=== PATIENT | male | born 1995 ===

== ENCOUNTER 2022-06-20 23:57 | Emergency (ER) | payer SELFPAY ==
[2022-06-21] MEDS ORDERED: ONDANSETRON 4 MG/2 ML INJ IV ONE ×2 (01:29→13:24)
[2022-06-21] MEDS ORDERED: SODIUM CHLORIDE 0.9% 1000 ML 1,000 ML IV ONE ×3 (01:29→03:13)
[2022-06-21 01:55] LABS: Albumin 5.2 g/dL (3.9-5); Calcium 9.3 mg/dL (8.4-10.2)
--- NOTE | 2022-06-21 02:00 | XRay Report ---
CHEST 1 VIEW 06/21/2022 1:38 AM INDICATION / CLINICAL INFORMATION: Dyspnea. COMPARISON: None available. FINDINGS: Heart size appears normal. Small amount of pneumomediastinum and gas in the right neck soft tissues. Some gas surrounding the left cardiac border. No large pneumothorax is definitely seen. IMPRESSION: Pneumomediastinum with gas in the right neck soft tissues as well Called to Dr. Hameed Signer Name: Robson Jaimes MD Signed: 06/21/2022 1:55 AM Workstation Name: [id number]
[2022-06-21 02:50] LABS: Mucus,Urine FEW /HPF
[2022-06-21 02:52] LABS: Hematocrit 47.7 % (35.5-45.6); Hemoglobin 15.2 gm/dl (11.8-15.2); Mean Corpuscular HGB Conc 32 % (32-34); Mean Corpuscular Volume 86 fl (84-94); Platelet Count 341 K/mm3 (140-440); Red Blood Count 5.57 M/mm3 (3.65-5.03); Red Cell Distribution Width 13.2 % (13.2-15.2)
[2022-06-21] MEDS ORDERED: INSULIN REGULAR, HUMAN 100 UNITS in SODIUM CHLORIDE 0.9% 99 ML IV SCH (03:00)
[2022-06-21 03:06] LABS: Amphetamine Screen,Urine PRESUMPTIVE NEGATIVE; Benzodiazepines Screen,Urine PRESUMPTIVE NEGATIVE; Cannabinoid Screen,Urine PRESUMPTIVE POSITIVE; Cocaine Screen,Urine PRESUMPTIVE NEGATIVE; Methadone Screen,Urine PRESUMPTIVE NEGATIVE; Opiate Screen,Urine PRESUMPTIVE NEGATIVE
[2022-06-21] MEDS ORDERED: INSULIN REGULAR, HUMAN 100 UNITS/1 ML IV ONE (03:14)
[2022-06-21 03:21] LABS: Bilirubin,Urine Negative (Negative); Color,Urine Straw (Yellow)
[2022-06-21 03:22] LABS: Blood,Urine Negative (Negative)
--- NOTE | 2022-06-21 03:22 | Cat Scan Report ---
CT CHEST without, ABDOMEN, AND PELVIS WITH IV CONTRAST INDICATION / CLINICAL INFORMATION: pain. TECHNIQUE: Axial CT images were obtained through the chest, abdomen, and pelvis after IV contrast. All CT scans at this location are performed using CT dose reduction for ALARA by means of automated exposure contr ol. COMPARISON: None available. FINDINGS: CHEST: There is diffuse gas within soft tissues of the neck. Diffuse pneumomediastinum is identified. Heart size appears normal. No significant coronary artery calcifications. No pneumothorax is seen. N o pleural effusion is noted. ABDOMEN/PELVIS: There is a lesion within the left hepatic lobe with niranjan pheral areas of discontinuous enhancement measuring 4.5 cm. Findings suggest possible hemangioma. The spleen, adrenal glands, pancreas appear normal. Evaluation of the mesentery of the abdomen is limite d due to the amount of gas and fluid throughout the small and large bowel loops. Significant motion a rtifact also limits examination throughout the abdomen. The urinary bladder is markedly distended vis ualized aorta appears normal. No significant coronary artery calcifications. Small hydroceles are not ed. Appendix is not seen. No focal inflammatory changes definitely seen however limited by paucity of intra-abdominal fat SKELETAL SYSTEM: No significant abnormality. IMPRESSION: 1. Diffuse pneumomediastinum with air tracking into the right neck soft tissues axilla as well. Some mild gas extends into the upper abdomen for the mediastinum. No displaced fractures seen. No pneumoth orax. 2. No acute findings are seen within the abdomen. Significant motion artifact in the upper abdomen li mits visualization. A paucity of intra-abdominal fat makes visualization for inflammatory change limi lisa. 3. Urinary bladder is distended. 4. Left hepatic lobe lesion suggest hemangioma. Fatty infiltration of the liver. 5. No definite bowel obstruction. Signer Name: Robson Jaimes MD Signed: 06/21/2022 3:17 AM Workstation Name: [email or web address]
[2022-06-21] MEDS ORDERED: PIPERACILLIN/TAZOBACTAM 3.375 3.375 GM/50 ML BAG IV ONE (03:33)
[2022-06-21 03:35] LABS: ABG Base Excess -12.1 mmol/L (-2.0-3.0); ABG HCO3 12.4 mmol/L (20.0-26.0); ABG Methemoglobin 0.6 % (0.0-1.5); ABG Oxygen Saturation 97.4 % (95.0-99.0); ABG PCO2 25.5 mm Hg; ABG PH 7.303 pH Units (7.350-7.450); ABG PO2 100.8 mm Hg (80.0-90.0)
[2022-06-21 04:06] LABS: BUN/Creatinine Ratio 20; Blood Urea Nitrogen 28 mg/dL (9-20); Calcium 8.5 mg/dL (8.4-10.2); Hemolysis Index 4
[2022-06-21 04:25] LABS: Creatine Kinase MB < 1.0 ng/mL (0.0-4.0)
[2022-06-21] MEDS ORDERED: VANCOMYCIN/NS 1 GM/250 ML 1 GM/250 ML BAG IV ONE (04:33)
--- NOTE | 2022-06-21 04:34 | Emergency Department Report ---
ED General Adult HPI - General Chief complaint: Hyperglycemia Stated complaint: ABDOMINAL PAIN,VOMITING,DKA Time Seen by Provider: 06/21/22 01:26 Source: patient, family Mode of arrival: Stretcher Limitations: No Limitations - History of Present Illness Initial comments: Abdominal pain and vomiting X 3 days. Took Zofran and 10units Insulin when EMS arrived at home. Accucheck 390. -: Gradual, hour(s) Location: chest, back, abdomen Severity scale (0 -10): 5 Quality: aching Consistency: constant Improves with: none Worsens with: none Associated Symptoms: chest pain. denies: denies other symptoms, confusion - Related Data Allergies Allergy/AdvReac Type Severity Reaction Status Date / Time No Known Allergies Allergy Verified 06/21/22 03:03 ED Review of Systems ROS: Stated complaint: ABDOMINAL PAIN,VOMITING,DKA Other details as noted in HPI Constitutional: denies: chills, fever Eyes: denies: eye pain, eye discharge, vision change ENT: denies: ear pain, throat pain Respiratory: denies: cough, shortness of breath, wheezing Cardiovascular: denies: chest pain, palpitations Endocrine: no symptoms reported Gastrointestinal: denies: abdominal pain, nausea, diarrhea Genitourinary: denies: urgency, dysuria Musculoskeletal: denies: back pain, joint swelling, arthralgia Skin: denies: rash, lesions Neurological: denies: headache, weakness, paresthesias Psychiatric: denies: anxiety, depression Hematological/Lymphatic: denies: easy bleeding, easy bruising ED Past Medical Hx - Past Medical History Previous Medical History?: Yes Hx Diabetes: Yes - Surgical History Past Surgical History?: No - Social History Smoking Status: Never Smoker Substance Use Type: Marijuana ED Physical Exam - General Limitations: No Limitations General appearance: alert, anxious, in distress - Head Head exam: Present: atraumatic, normocephalic - Eye Eye exam: Present: normal appearance - ENT ENT exam: Present: mucous membranes moist - Neck Neck exam: Present: normal inspection - Respiratory Respiratory exam: Present: normal lung sounds bilaterally. Absent: respiratory distress - Cardiovascular Cardiovascular Exam: Present: regular rate, normal rhythm. Absent: systolic murmur, diastolic murmur, rubs, gallop - GI/Abdominal GI/Abdominal exam: Present: soft, normal bowel sounds - Rectal Rectal exam: Present: deferred - Extremities Exam Extremities exam: Present: normal inspection - Back Exam Back exam: Present: normal inspection - Neurological Exam Neurological exam: Present: alert, oriented X3 - Psychiatric Psychiatric exam: Present: normal affect, normal mood - Skin Skin exam: Present: warm, dry, intact, normal color. Absent: rash ED Course Vital Signs 06/20/22 06/21/22 06/21/22 23:58 01:05 01:15 Temperature 98.2 F Pulse Rate 88 86 Respiratory 18 18 Rate Blood Pressure 128/72 132/90 O2 Sat by Pulse 97 99 100 Oximetry 06/21/22 06/21/22 06/21/22 01:31 01:45 02:00 Temperature Pulse Rate 84 99 H 85 Respiratory 13 21 16 Rate Blood Pressure 143/79 126/85 126/70 O2 Sat by Pulse 100 100 100 Oximetry 06/21/22 06/21/22 06/21/22 02:15 02:30 03:07 Temperature Pulse Rate 80 82 94 H Respiratory 20 22 21 Rate Blood Pressure 114/58 114/58 122/72 O2 Sat by Pulse 100 100 98 Oximetry 06/21/22 06/21/22 06/21/22 03:15 03:31 03:45 Temperature Pulse Rate 85 91 H 81 Respiratory 13 17 19 Rate Blood Pressure 126/78 126/70 116/69 O2 Sat by Pulse 99 100 99 Oximetry 06/21/22 06/21/22 06/21/22 04:01 04:15 04:31 Temperature Pulse Rate 91 H 86 85 Respiratory 19 14 19 Rate Blood Pressure 120/74 120/74 120/77 O2 Sat by Pulse 99 98 99 Oximetry 06/21/22 06/21/22 06/21/22 04:45 05:01 05:15 Temperature Pulse Rate 87 90 86 Respiratory 20 20 20 Rate Blood Pressure 114/74 114/74 114/74 O2 Sat by Pulse 100 98 98 Oximetry 06/21/22 05:31 Temperature Pulse Rate 93 H Respiratory 20 Rate Blood Pressure 110/73 O2 Sat by Pulse 98 Oximetry ED Medical Decision Making - Lab Data Result diagrams: 06/21/22 01:14 06/21/22 03:31 - EKG Data -: EKG Interpreted by Mo EKG shows normal: sinus rhythm Rate: normal - EKG Data Interpretation: no acute changes - Radiology Data Radiology results: report reviewed, image reviewed - Medical Decision Making work up showed : - DKA L protocal applied fluids and insulin bolus and drip - Pneumo mediatsium , spoke with dr strong , recommends transfer to thoracic surgery , spoke with [facility] thoracic surgery PA, will send pictures to [facility] to prepare for transfer - leukocytosis : abx and lactic acid accepted , by dr galarza over ed lambert , spoke with ALESSANDRO FRANCOIS for dr Ivy thoracic surgeon Critical care attestation.: If time is entered above; I have spent that time in minutes in the direct care of this critically ill patient, excluding procedure time. ED Disposition Clinical Impression: DKA (diabetic ketoacidosis), Pneumomediastinum Disposition: [facility] HOSPICE[facility]MEDICAL FACILITY Is pt being admited?: No Does the pt Need Aspirin: No Condition: Critical Instructions: Diabetic Ketoacidosis (ED)
[2022-06-21 07:17] LABS: Basophils % (Manual) 0 % (0.0-1.8); Total Cells Counted 100
[2022-06-21 07:18] LABS: Platelet Estimate Consistent w Auto
[2022-06-21 08:04] LABS: BUN/Creatinine Ratio 19; Blood Urea Nitrogen 23 mg/dL (9-20); Calcium 8.7 mg/dL (8.4-10.2); Hemolysis Index 4
[2022-06-21] MEDS ORDERED: fentaNYL 100 MCG/2 ML INJ IV ONE (13:24)
[2022-06-21 13:54] LABS: BUN/Creatinine Ratio 19; Blood Urea Nitrogen 21 mg/dL (9-20); Hemolysis Index 6
[2022-06-21 14:39] VITALS: BP 110/65
--- NOTE | 2022-06-22 14:40 | Electrocardiograph Report ---
[facility] Test Date: 2022-06-21 Test Time: 03:09:39 Pat Name: LOKI OLIVEIRA Department: Room: Gender: M French Tutor: TONY : 1995 Requested By: RICHIE VELASCO Order Number: [id number] Reading MD: Felipe Cuadra Measurements Intervals [place] Rate: 85 P: 83 CT: 139 QRS: 77 QRSD: 90 T: 72 QT: 350 QTc: 417 Interpretive Statements Sinus rhythm Right atrial enlargement No previous ECG available for comparison Electronically Signed On 06-22-2022 14:40:18 EDT by Felipe Cuadra
== END 2022-06-21 15:24 | disposition hospice, inpatient (51) ==
LOC: EDSEX → ED 23:57
DX: E11.10 Type 2 diabetes mellitus with ketoacidosis without coma (principal); J98.2 Interstitial emphysema; E11.9 Type 2 diabetes mellitus without complications; Z79.899 Other long term (current) drug therapy
CPT/HCPCS: 36415; 71045; 71250; 74177; 80048; 80053; 80307; 81001; 82140; 82550; 82553; 82803; 82962; 83690; 83735; 84100; 84484; 85007; 85025; 93005; 96361; 96365; 96366; 96368; 96375; 96376; 99285; J2405; J2543; J3010; J3370; J7030; Q9967; J1815